=== PATIENT | female | born 1985 | race Caucasian/White ===

== ENCOUNTER 2017-03-14 20:27 | Outpatient (CLI) | payer OTHER ==
[2017-03-14 21:12] VITALS: BMI 23.6
== END 2017-03-14 22:07 | disposition home or self-care (01) ==
LOC: FBC 20:27 → FBCOUT 20:27
PROVIDERS: ATTEND Advanced Practice Midwife
DX: O26.899 Other specified pregnancy related conditions, unspecified trimester (principal); Z3A.00 Weeks of gestation of pregnancy not specified
CPT/HCPCS: 59025; G0463

== ENCOUNTER 2017-03-15 08:12 | Inpatient (IN) | payer OTHER ==
[2017-03-15] MEDS ORDERED: OXYTOCIN IN NS 334 ML IV PRN (08:17)
[2017-03-15] MEDS ORDERED: LACTATED RINGERS 1,000 ML IV PRN (08:17)
[2017-03-15] MEDS ORDERED: OXYTOCIN 10 UNITS/ML VIAL ONE (08:41)
[2017-03-15] MEDS ORDERED: LIDOCAINE Viscous 2% 15 ML UDCUP ONE (08:41)
[2017-03-15] MEDS ORDERED: PUMP TUBING ONE (08:41)
[2017-03-15] MEDS ORDERED: LIDOCAINE 1% (PRES FREE) 30 ML VIAL ONE (08:41)
[2017-03-15] MEDS ORDERED: LACTATED RINGERS 1,000 ML ONE (08:41)
[2017-03-15] MEDS ORDERED: MINERAL OIL 25 ML BOT ONE (08:41)
[2017-03-15] MEDS ORDERED: IV START KIT ONE (08:41)
[2017-03-15] MEDS ORDERED: OXYTOCIN IN NS 500 ML IV ONE (08:42)
[2017-03-15] MEDS ORDERED: MISOPROSTOL 25 MCG TABLET SL ONE (09:28)
[2017-03-15 09:46] VITALS: BMI 29.0
[2017-03-15 09:49] LABS: HEMATOCRIT 32.9 % (37.0-47.0); HEMOGLOBIN 11.2 gm/l (12.0-16.0); MEAN CELL VOLUME 88.9 fl (81.0-99.0); MEAN CORPUSCULAR HEMOGLOBIN 30.3 pg (27.0-31.0); RED CELL DISTRIBUTION WIDTH 12.7 % (11.5-14.5)
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
[2017-03-15] MEDS: OXYTOCIN IN NS 500 ML IV PRN ×3 (14:19→17:04)
--- NOTE | 2017-03-15 14:52 | PDOC36 ---
Provider Note Subject: labor progress note - pitocin Note: S: Lynnette has been very active, doing all recommended positions and walking. She has started to feel some regular contractions but notes they are not painful. O: FHT: 135/moderate variability/accels present/decels absent Ctx: q 4-5min lasting 60-80sec/mild T: 36.3C BP: 113/66 P: 93 VE: deferred. Admit VE 3/70/-3 Claros score 3 Leopolds LOT A: with IUP at 39w3d PROM x 31hrs, gbs neg, clear fluid, afebrile Not in Labor FHT Cat I P: Given mild response to miso, recommended pitocin induction. Lynnette agrees with plan. Encouraged continued active movement and spinning babies movements.
[2017-03-15] MEDS ORDERED: LIDOCAINE Viscous 2% 15 ML UDCUP MM ONE (20:26)
[2017-03-15] MEDS ORDERED: LIDOCAINE 1% (PRES FREE) 30 ML VIAL SUB-Q ONE (20:43)
--- NOTE | 2017-03-15 21:31 | PDOC36 ---
Provider Note Subject: Handoff Note - Labor progress Note: Late entry due to patient care S: At 1900, patient working hard during contractions - pain is mostly in the low pelvis. Having difficulty coping at the peak of contractions. No urge to push. and soaker meat providing support at bedside. O: VS: BP 127/79 HR 95 RR 20 T 36.1C FHR: baseline 135, moderate variability, accels present, rare mild variable Ctx: Q 1-3 minutes SVE: deferred Pitocin @ 4 mu/min A: IUP @ 39w2d IOL for PROM Active labor FHR Category II without evidence of acidemia ROM x 35 hrs, afebrile Difficulty coping P: Continue pitocin per protocol. Continuous labor support. Anticipate .
--- NOTE | 2017-03-15 22:11 | PCMDEL ---
Delivery Note - Labor 1st stage (hr/min):: 3 hrs 2nd stage (hr/min):: 27 min 3rd stage (hr/min):: 10 min Total (hr/min):: 3 hrs, 37 min Pushed (hr/min):: 27 min - Delivery Delivery (Date): 03/15/17 Delivery (Time): 20:27 Gender: Male Weight: 8 lb Presentation: Cephalic Position: OA Umbilical Cord: 3 Vessel Delayed Cord Clamping:: > 3 min 1 Minute Total: 9 5 Minute Total: 9 Placenta:: augustin, intact EBL:: 400 ml Perineum:: 1st degree laceration Suture:: 4-0 Anesthesia/Meds:: local anesthetic Length ROM:: 37 hrs Comments:: PROM of clear fluid at 0745 on 03/14/17 confirmed that afternoon in triage. GBS neg. Patient went home to sleep and returned at 24 hrs ROM, afebrile. Induction with miso x1 and then pitocin. Patient progressed normally to complete dilation with spontaneous urge to push. A male infant was delivered over a 1st degree laceration OA to LITZY with compound anterior hand. Laceration repaired under local anesthetic of 1% lidocaine injection using a 4-0 suture. Brisk bleeding was noted and IV pitocin was administered and bleeding slowed. initiated within first hour after delivery.
[2017-03-15] MEDS ORDERED: HYDROCODONE/ACETAMINOPHEN 5/325MG TABLET PO PRN (22:18)
[2017-03-15] MEDS ORDERED: ACETAMINOPHEN 325 MG TABLET PO PRN (22:18)
[2017-03-15] MEDS ORDERED: CALCIUM CARBONATE 500 MG TAB.CHEW PO PRN (22:18)
[2017-03-15] MEDS ORDERED: LANOLIN 50 APPLIC/7G TUBE TP PRN (22:18)
[2017-03-15] MEDS ORDERED: OXYTOCIN IN NS 167 ML IV PRN (22:18)
[2017-03-15] MEDS ORDERED: BENZOCAINE/MENTHOL 60 APPLIC/BOT TP PRN (22:18)
[2017-03-15] MEDS: IBUPROFEN 800 MG TABLET PO SCH (23:41)
[2017-03-16] MEDS: DOCUSATE SODIUM 100 MG CAPSULE PO PRN ×2 (04:12→20:41)
[2017-03-16] MEDS: IBUPROFEN 800 MG TABLET PO SCH ×3 (12:10→20:41)
--- NOTE | 2017-03-16 13:15 | PDOC44 ---
- Subjective Day: 1 Lynnette feels very empowered by her , especially that she only had two vaginal exams during the process. She and her are enjoying how different this baby is from their first. She is having some burning with urination over the site of a laceration, that is imporved with using the sheryl bottle. Her pain is well-controlled with ibuprofen. She reports moderate amount of bleeding. She is wearing a binder and feels that this is giving her good abdominal support. Her infant has been sleepy and not very frequently. We discussed encouraging him to feed every 2-3 hours and keeping good skin to skin contact. She reports a shallow latch when he does feed. Reports Flatus, Reports Pain Tolerable, Reports - Objective Temp Pulse Resp BP Pulse Ox 98.0 F 86 12 115/59 03/16/17 08:53 03/16/17 08:53 03/16/17 08:53 03/16/17 08:53 Current Medications Generic Name Dose Route Start Last Admin Trade Name Freq PRN Reason Stop Dose Admin Acetaminophen 325 - 650 mg 03/15/17 22:18 Tylenol PO Q4H PRN Pain (Mild) Acetaminophen/Hydrocodone Bitart 1 - 2 tab 03/15/17 22:18 Guy 5/325 PO Q4H PRN Pain (Moderate) Benzocaine/Menthol 1 applic 03/15/17 22:18 03/15/17 23:41 Dermoplast TP 1 bot PRN PRN Administration Patient Comfort Calcium Carbonate/Glycine 500 - 1,000 mg 03/15/17 22:18 Tums PO BID PRN Indigestion Docusate Sodium 100 mg 03/15/17 22:18 03/16/17 04:12 Colace PO 100 mg DAILY PRN Administration Comfort Emollient Ointment 1 applic 03/15/17 22:18 [id number] TP PRN PRN sore nipples OXYTOCIN IN NS 167 mls @ 167 mls/hr 03/15/17 22:18 Oxytocin-Ns 30 Unit/500 Ml IV X1 PRN Bleeding/3rd stage labor Ibuprofen 800 mg 03/15/17 22:18 03/16/17 12:10 Motrin PO 800 mg Q6H JOSE Administration Sodium Chloride 10 ml 03/15/17 22:18 Normal Saline 10ml Flush IV PRN PRN IV Flush - Physical Exam General: Afebrile Psych/Mental Status: Mood/Affect Appropriate, Judgment/Insight Intact, Bonding Well Neurological: Grossly Intact, Alert, Oriented x 4 HEENT: Atraumatic Lungs: Clear to Auscultation Bilaterally, Normal Air Movement Cardiovascular: Regular Rate and Rhythm, Normal S1, Normal S2 Breast: Soft, Skin intact, Nipples Intact Fundus: Firm, Midline, Below Umbilicus Abdomen: Other (diastasis recti below umbilicus) Genitourinary: Normal Female Genitalia Lochia: Moderate Rectal Exam: Deferred Extremities: Full ROM - Problems:Assessment/Plan (1) (spontaneous vaginal delivery) Status: AcuteAssessment/Plan: A: s/p PP day 1 Normal PP recovery , working on getting adequate amount of feeds under closer observation by peds r/t 38 hours ruptured P: Anticipate dc to home tomorrow notified and will see Lynnette this afternoon to make sure infant is getting adequate feeding and good latch is established. Discussed size of infant stomach, size of colostrum feeds, ways to gently wake baby to feed every 2-3 hours. Counseled on perineal care to prevent burning with urination. Plans condoms and vasectomy . Midwifery 'After the ' handout given but not reviewed in-depth with patient. Disposition: Anticipate DC Home Tomorrow
[2017-03-17] MEDS: IBUPROFEN 800 MG TABLET PO SCH ×2 (03:30→12:54)
[2017-03-17 09:16] VITALS: BP 114/65
--- NOTE | 2017-03-17 11:03 | PDOC39B ---
Hospital Course: ADMIT DATE: 03/15/17 DISCHARGE DATE: 03/17/17 ADMISSION DIAGNOSES: PROM at term PROCEDURES: HISTORY OF PRESENT ILLNESS: 31 year old G3 T1 L1 at 39 weeks 3 days presenting with term PROM. Achieved a successful of a baby boy. HOSPITAL COURSE: By day of discharge the patient is ambulating, eating, voiding , and passing flatus without difficulty. Pain is controlled and lochia is appropriate. She is and pumping. She has been working with to help baby latch more deeply. She has also been pumping. She is requesting a breast pump prescription. She reports good social support. Her is planning a vasectomy and they will use condoms in the meantime. She is very happy with her experience. Baby is getting one more CBC this AM because his white count has been increasing, but they are hoping to still discharge home today. - Physical Exam Vital Signs: Temp Pulse Resp BP Pulse Ox 98.6 F 91 16 114/65 03/17/17 09:11 03/17/17 09:11 03/17/17 09:11 03/17/17 09:11 General: Afebrile Psych/Mental Status: Mood/Affect Appropriate, Judgment/Insight Intact, Bonding Well Lungs: Clear to Auscultation Bilaterally Cardiovascular: Regular Rate and Rhythm Breast: Soft, Skin intact, Nipples Intact (bilateral small blisters, no cracks or bleeding) Fundus: Firm, Midline, Below Umbilicus (2FB below) Genitourinary: Normal Female Genitalia Lochia: Light Extremities: Full ROM Skin: Normal Color - Discharge Diagnosis (1) care and examination of lactating mother Status: AcuteAssessment/Plan: A: 31yo Day 2 Lochia stable Hx depression -working to get a deeper latch, sore nipples P: : encourage follow-up with [facility], use of nipple butter, pumping PRN, relatching baby when he has a shallow latch, frequent [id number] and on-demand feeding Rx: no meds requested, breast pump Rx given Education: handout given and reviewed. Warning signs discussed. Hx depression: encouraged to pay close attention to mood, call with concerns, will re-eval at 2wk PP visit Contraception: condoms, then vasectomy Follow-up: 04/03/17 at 1pm in [place], or PRN - Discharge Plan Condition: Stable Disposition: Home Additional Instructions: Congratulations on the of [place]! You have a follow-up appointment on 04/03/17 at 1pm in [place]. If you have any questions or concerns, or need to reschedule, please call the clinic at [phone].
== END 2017-03-17 14:20 | disposition home or self-care (01) | DRG 775 ==
LOC: FBC 08:12 → EDSTATUS 03-19 08:11
PROVIDERS: ADMIT Advanced Practice Midwife; ATTEND Advanced Practice Midwife
PROC: 3E033VJ Introduction of Other Hormone into Peripheral Vein, Percutaneous Approach (ICD-10-PCS; principal; 2017-03-15)
PROC: 0HQ9XZZ Repair Perineum Skin, External Approach (ICD-10-PCS; 2017-03-15)
PROC: 10E0XZZ Delivery of Products of Conception, External Approach (ICD-10-PCS; 2017-03-15)
DX: O42.92 Full-term premature rupture of membranes, unspecified as to length of time between rupture and onset of labor (principal); O41.1230 Chorioamnionitis, third trimester, not applicable or unspecified; O68 Labor and delivery complicated by abnormality of fetal acid-base balance; Z37.0 Single live birth; O70.0 First degree perineal laceration during delivery; Z3A.39 39 weeks gestation of pregnancy